=== PATIENT | female | born 1960 | race Caucasian/White ===

== ENCOUNTER 2024-04-01 07:29 | Outpatient (CLI) | payer OTHER ==
[2024-04-01] MEDS ORDERED: E-Z-HD 98% W/W 340GM BOT (x-ray ONLY) ONE (07:55)
[2024-04-01] MEDS ORDERED: Barium Sulfate 96% 176 GM BOT (xray ONLY) ONE (07:55)
== END 2024-04-01 07:30 | disposition home or self-care (01) ==
LOC: RAD 07:29
PROVIDERS: ATTEND Specialist
DX: K21.9 Gastro-esophageal reflux disease without esophagitis (principal); K44.9 Diaphragmatic hernia without obstruction or gangrene
CPT/HCPCS: 74246